=== PATIENT | female | born 1970 | race African-American/Black ===

== ENCOUNTER 2020-12-07 10:33 | Emergency (ER) | payer OTHER ==
[~2020-12-07] VITALS: Ht 167.6 cm; Wt 67.6 kg
[2020-12-07 10:53] VITALS: BP 124/80
[2020-12-07] MEDS ORDERED: NORCO5 PO ×3 (12:10→13:29)
[2020-12-07] MEDS ORDERED: NAPROSYN500 MG PO (12:10)
== END 2020-12-07 12:42 | disposition home or self-care (01) ==
LOC: ER 10:33
DX: S93.401A Sprain of unspecified ligament of right ankle, initial encounter (principal); S93.601A Unspecified sprain of right foot, initial encounter; Z88.6 Allergy status to analgesic agent; W10.8XXA Fall (on) (from) other stairs and steps, initial encounter; Y93.89 Activity, other specified; Y92.89 Other specified places as the place of occurrence of the external cause; Y99.8 Other external cause status